=== PATIENT | male | born 1955 | race Caucasian/White ===

== ENCOUNTER 2019-03-16 08:23 | Day surgery (SDC) | payer MEDICARE, OTHER, SELFPAY ==
[2019-03-03 09:17] VITALS: BMI 29.1
[2019-03-16] VITALS (9 sets, daily range): BP systolic 118–139; BP diastolic 64–79; PULSE 71–97; RESP 6–16; TEMP 36.3–36.7; O2SAT 94–97; BMI 28.3
--- NOTE | 2019-03-16 | PATH_ITS ---
[facility] Accession Number: [id number] . 01 Material submitted: . chest - LEFT DEEP POSTERIOR CHEST WALL . 01 Clinical history: . EVALUATE FOR LIPOSARCOMA. SHORT TAG SUPERIOR LONG TAG LATERAL, DOUBLE . 01 Diagnosis: Left Deep Posterior Chest Wall Lesion, Excision: Mature adipose tissue, favor benign intramuscular lipoma, with fat necrosis and degenerative changes, see microscopic description. MRV/03/24/2019 . 01 Comment: As part of ongoing quality auditor, this case is also reviewed by Dr. Kassandra Zapata, who agrees with the interpretation. . 01 Electronically signed: . Carlos Owens MD, Pathologist NPI- [id number] . 01 Gross description: . Received in formalin, labeled left deep posterior chest wall mass - evaluate for liposarcoma, short tag superior, long tag lateral, double tag deep, is a piece of farley-yellow rubbery adipose tissue (4.6 cm AP, 6.0 cm SI, 12.0 cm ML) oriented with three black sutures (short-superior, long-lateral, double-deep) partially covered by an ellipse of dull coon shiny skin (4.5 cm ML, 0.6 cm SI). Muscle is present on the anterior aspect. The cut surface is farley-yellow, homogeneous, and unremarkable. Ink code: purple-anterior; black-posterior; blue-superior; green-inferior; orange-medial; yellow-lateral. Section code: (A1-A5) tissue with margins, risk control representative; (A6) tissue without margins, risk control representative; (A7-A10) skin and tissue with muscle, risk control representative. Note: This specimen was evaluated by Dr. Isra De La Paz, who verified the long suture is on the medial aspect of the specimen. The cut surface was also evaluated by Dr. Isra De La Paz for tissue submission. ([id number]) /MRV . 01 Microscopic: . Microscopic examination of multiple risk control representative sections of this adipocytic lesion reveals lobulated adipose tissue composed of mature adipocytes, intermixed with skeletal muscle fibers and transversed by slender fibrous septa containing few spindle cells without distinct atypia and small blood vessels. There are scattered areas of fat necrosis with histiocytes and giant cell reaction. Atypical histologic features including thick fibrous bands with atypical large cells, or adipocytes variably sized, with pleomorphic or hyperchromatic nuclei, mitoses and necrosis are not identified. However, as this lesion is large, 12.0 cm in largest dimension, and located deep in the soft tissue, the possibility of an atypical lipomatous tumor/well-differentiated liposarcoma has also been considered but was not supported based on cytomorphologic features. Therefore, MDM2 FISH studies will be performed and results will follow in an addendum report. Immunostains will be also performed to further evaluate the few spindle cells associated with the fibrous septa and results will follow in the addendum report. . . 01 Pathologist provided ICD-10: D17.1 . 01 CPT . 016226 Performed at: 01 [facility] [address], [place], [place] [id number] MD Tha De La Paz MD Phone: [phone]
[2019-03-16] MEDS: LACTATED RINGERS 1,000 ML 100 ML IV ×2 (08:57→11:07)
--- NOTE | 2019-03-16 09:01 | PM.HP.1 ---
History of Present Illness Date Patient Seen: 03/16/19 Time Patient Seen: 09:01 Chief complaint: [id number] Narrative: Pt seen and examened - health unchanged from full H and P on 02/23/19 I experiencing more seasonal allergy related congestion. Plan for L back mass excision today Patient History Medical History (Updated 03/03/19 @ 09:22 by Princess Hutchinson RN) Arthritis (Acute) TIA (transient ischemic attack) (Acute) Asthma (Acute) GERD (gastroesophageal reflux disease) (Acute) HTN (hypertension) (Acute) Surgical History (Updated 03/03/19 @ 09:24 by Princess Hutchinson RN) History of bilateral carpal tunnel release (Acute ~2008) History of bilateral knee replacement (Acute) History of lumbar surgery (Acute) Hx of foot surgery (Acute ~2004) Hx of removal of cyst (Acute ~2001) Status post trigger finger release (Acute ~2013) History of lumbosacral spine surgery (Acute) Total knee replacement status (Acute) Family History (Updated 02/23/19 @ 15:32 by Michelet Gold MD) Unknown Cancer Social History (Updated 02/23/19 @ 15:33 by Michelet Gold MD) details: Lives locally household members: spouse Smoking Status: Never smoker alcohol intake: current substance use type: does not use Family & Social History Family History (Updated 02/23/19 @ 15:32 by Michelet Gold MD) Unknown Cancer Social History: household members spouse Tobacco & Substance use: Smoking Status Never smoker alcohol intake current Substance Use Type does not use Meds Home Medications Medication Instructions Recorded Confirmed Type amlodipine PO 02/23/19 02/23/19 History ascorbic acid (vitamin C) ER 1,000 1,000 mg PO Q12H 02/23/19 03/03/19 History mg tablet,extended release beclomethasone diprop 80 1 puff INHALATION BID 02/23/19 03/03/19 History mcg/actuation HFA breath activated aerosol cholecalciferol (vitamin D3) 2,000 2,000 unit PO DAILY 02/23/19 03/03/19 History unit capsule flaxseed oil 1,000 mg capsule 2,000 mg PO DAILY cap 02/23/19 03/03/19 History mukaust PO 02/23/19 02/23/19 History telmisartan 80 mg tablet 80 mg PO DAILY 02/23/19 03/03/19 History terazosin 2 mg capsule 2 mg PO DAILY 02/23/19 03/03/19 History aspirin 81 mg PO Q OTHER DAY 03/03/19 03/03/19 History Allergies Allergy/AdvReac Type Severity Reaction Status Date / Time rhubarb Allergy Severe Throat Verified 03/03/19 09:24 mckay
[2019-03-16] MEDS: CEFAZOLIN 2 GM/100 ML FROZ.PIGGY IV (09:50)
--- NOTE | 2019-03-16 10:11 | SUR.OPER ---
Prone on padded OR bed, head in foam head support, gel chest rolls, gel pad under knees, pillow under lower legs, toes free of pressure, arms secured on padded arm boards at <90 degrees abduction. Safety belt at thigh.
[2019-03-16] MEDS: BUPIVACAINE 0.25% W/ EPI 30 ML VIAL INJ (10:19)
--- NOTE | 2019-03-16 13:21 | SUR.PHASEI ---
Pt slowly awake, denied pain. taking ice chips.
[2019-03-16] MEDS: HYDROCODONE/ACET 5/325 TABLET 1 TAB PO ×2 (13:26→13:49)
--- NOTE | 2019-03-16 13:28 | SUR.PHASEI ---
Medicated with vicodin after applesauce tolerated. report to danny.
--- NOTE | 2019-03-16 13:31 | P.OP_ITS ---
Operative Date/Time/Diagnoses Date of procedure: 03/16/19 Time of procedure: 13:00 Pre-op diagnosis: Soft tissue mass on Left trunk adjacent Post-op diagnosis: other (Fatty soft tissue mass - deep left chest 13cm x 8cm x 6cm. ) Procedure & Clinicians Procedure: Excisional biopsy of left deep chest wall tumor -well deep to the fascia [id number] Same procedure as scheduled: Yes Indications: 64-year-old man with progressively growing soft tissue mass over the left back just inferior to the scapula. Had had an attempt at excision at outside hospital -this was aborted due to the depth of the tumor. Pathology returned normal tissue. Surgeon: Michelet Gold Anesthesia Type: General Operative Notes Findings: Large encapsulated fatty tissue occupying space just superficial to the erector spinae muscles and serrated anterior, inferior to the scapula, deep to latissimus dorsi and trapezius growing deep to teres major. With great care entire tumor removed EN bloc including prior incision, all of capsule, and all adjacent fatty tissue -due to adherence, portion of teres minor removed EN bloc. No concern for violation of capsure during surgery Metalic clips left at borders of dissection in case of liposcarcoma Closure Type: primary Specimen(s): other (Fatty tumor of deep chest wall on L) Estimated Blood Loss (mL): 10 Blood products transfused: none Procedure in detail: Patient was taken to the operating room he was intubated without incident he was then rolled into a prone position. He was prepped and draped in usual sterile fashion a time-out was completed. The margins of the deep tumor were palpated and marked out on the skin the overlying incision was identified -fortunately it was in a transverse orientation. A large field block was then infiltrated with local anesthetic. Approximately 5 mm of tissue on either side of the incision were ellipsed out. And the incision itself was extended several cm laterally. The incision was extended into the deep subcutaneous tissue and then the subcutaneous tissue was elevated developing flaps. Palpating the mass it appeared to be fairly deep. To be able to approach it the inferior margin of trapezius was identified trapezius itself was grasped between Allis forceps and elevated it off of the underlying tissues. -and allowing the muscle BD of swept superiorly. The tumor was a identified to be deep as well more inferiorly to the fibers of latissimus dorsi. Similarly the superior edge of latissimus dorsi was grasped with Allis clamps and elevated off of the underlying tissue. This exposed a soft well and capsulated fatty appearing tumor that was generally not densely adherent to adjacent structures. Nevertheless all adjacent fatty tissue occupying the space between the described muscle groups was removed. A plane was developed just deep latissimus dorsi carried inferiorly until the capsule and tumor were out flanked. The deep edge of the tumor was then rotated upwards. Directly deep to this were ribs, serrated anterior, and the muscles of the errector spinae. Pr ogressing superiorly teres major was identified -the inferior portion of this muscle did appear to be rather adherent and as a consequence was taken EN bloc. The inferior edge of the wing of the scapula was hooked with a retractor and elevated allowing fatty tissue just deep to this to be excised EN bloc as well. This freed the entire tumor its capsule and a judicious amount of adjacent tissue to be removed. At no time was the capsule violated whatsoever. Wick clips were left at the margins of the resection noting the deep, superior, lateral, medial, superficial, inferior aspects of the tumor resection. The tumor itself was oriented with short stitch superior long stitch lateral and double stitch deep, skin obviously marked the superficial aspect. The cavity was washed out, hemostasis was ensured. The wound was then closed using 2 0 Vicryl sutures and Sofía's fashion. Skin was then closed using 2 0 deep dermal sutures with monofilament or bubble sutures in subcuticular fashion. Skin glue was applied the patient was extubated and brought to PACU without incident Complications: none Condition: stable Disposition: PACU Plan for aftercare: PACU and then home
[2019-03-16] MEDS: fentaNYL 100 MCG/2 ML INJ 50 MCG IV ×2 (14:17→14:27)
--- NOTE | 2019-03-16 16:59 | SUR.PHASEII ---
Late entry: Received pt from [facility], Pt still with high level pain, attached to continuous pulse ox and medicated with fentanyl. Pt's pain down to 4/10 by discharge. brought in at bedside- discharge instructions discussed. Both voiced an understanding. Incision to back intact with skin adhesive. When pt ready to go, dressed and left when ready and in stable condition.
== END 2019-03-16 15:15 | disposition home or self-care (01) ==
PROVIDERS: PCP Family Medicine; Visit Provider Surgery
PROC: (CPT 21933; principal; 2019-03-16 09:45)
DX: D17.1 Benign lipomatous neoplasm of skin and subcutaneous tissue of trunk (principal); I10 Essential (primary) hypertension; J45.909 Unspecified asthma, uncomplicated; Z86.73 Personal history of transient ischemic attack (TIA), and cerebral infarction without residual deficits
CPT/HCPCS: 21933; 88305; 88341; 88342; J0690; J1100; J1885; J2250; J2405; J2704; J3010

== ENCOUNTER → 2019-12-30 13:25 | Outpatient (CLI) | payer MEDICARE, OTHER, SELFPAY ==
--- NOTE | 2019-12-30 | DI.US.S_ITS ---
PROCEDURE: US SOFT TISSUE HEAD AND NECK INDICATIONS: NEOPLASM OF LEFT PAROTID SALIVARY GLAND. Patient reports left parotid/facial erythema and swelling which has since resolved since the initial imaging CT dated 12/01/19. Currently the patient reports no palpable abnormality, pain or symptoms in this region. TECHNIQUE: Real-time scanning was performed of the neck region of interest, with image documentation. COMPARISON: Outside Film, CT, CT SOFT TISSUE NECK WITH CONTRAST, 12/01/2019, 13:08. [facility], RG, CT SOFT TISSUE NECK WITH CONTRAST, 12/01/2019, 13:08. FINDINGS: In the area of the abnormality described within the superficial lobe of the left parotid gland, no definite pathologically enlarged lymph node is seen. No discrete mass or cystic fluid collection identified. There are a pair of normal-appearing lymph nodes, demonstrate no abnormal cortical thickening IMPRESSION: No pathologically enlarged lymphadenopathy or discrete target lesion identified. The CT appearance could have reflected reactive intraparotid lymph node, which has now resolved/improved. Findings were personally discussed with the patient and the scheduled FNA was canceled. The patient was instructed to return for ultrasound or CT imaging, if symptoms return, or palpable lump is detected. At clinical discretion, a followup [address] or ultrasound could be performed for additional assessment, and to ensure resolution. Dictated by: Merritt Benedict M.D. on 12/30/2019 at 17:21 Approved by: Merritt Benedict M.D. on 12/30/2019 at 17:40
== END ==
PROVIDERS: PCP Family Medicine; Referring Provider Otolaryngology; Visit Provider Otolaryngology
DX: D37.030 Neoplasm of uncertain behavior of the parotid salivary glands (principal)
CPT/HCPCS: 76536